=== PATIENT | female | born 1930 | race Caucasian/White ===

== ENCOUNTER → 2019-07-30 | Outpatient (CLI) | payer MEDICARE, OTHER ==
[2016-08-27 14:21] VITALS: BP 135/68
[~2019-07-30] MED LIST: AMLO10TA8 PO; BUDE10.2 IH; FA/V1CAP2 PO; FURO-69 PO; GABA600T7 PO; IOHEXOL 180 MG/ML 10 ML VIAL. ONE; KRIL1CAP7 PO; LEVO250T25 PO; LEVO75TA5 PO; LOSA1TAB22 PO; LOVA20TA2 PO; OMEP20TA63 PO; POTA10TA12 PO; UMEC1DIS IH; VIT1TABL32 PO; methylPREDNISolone ACETATE 40 MG/ML VIAL. ONE; methylPREDNISolone ACETATE 80 MG/ML VIAL. ONE
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
== END | disposition home or self-care (01) ==
LOC: PNCL 10:19
PROVIDERS: ATTEND Anesthesiology
DX: M50.123 Cervical disc disorder at C6-C7 level with radiculopathy (principal); M48.02 Spinal stenosis, cervical region; J44.9 Chronic obstructive pulmonary disease, unspecified; F17.210 Nicotine dependence, cigarettes, uncomplicated; K21.9 Gastro-esophageal reflux disease without esophagitis; M19.90 Unspecified osteoarthritis, unspecified site; Z90.710 Acquired absence of both cervix and uterus; Z90.49 Acquired absence of other specified parts of digestive tract; Z98.890 Other specified postprocedural states; Z79.899 Other long term (current) drug therapy; Z88.0 Allergy status to penicillin; Z88.6 Allergy status to analgesic agent; Z83.3 Family history of diabetes mellitus
CPT/HCPCS: 62321; J1030; J1040; Q9965

== ENCOUNTER → 2019-08-05 | Outpatient (CLI) | payer MEDICARE, OTHER ==
[2016-08-27 14:21] VITALS: BP 135/68
[~2019-08-05] MED LIST changes: -IOHEXOL 180 MG/ML 10 ML VIAL. ONE; -methylPREDNISolone ACETATE 40 MG/ML VIAL. ONE; -methylPREDNISolone ACETATE 80 MG/ML VIAL. ONE
--- NOTE | 2019-08-05 12:21 | KCIC ---
Chest radiograph 08/05/2019 12:00 AM INDICATION: Worsening shortness of breath and cough COMPARISON: 08/26/2016 TECHNIQUE: Frontal and lateral views of the chest are provided. FINDINGS: The cardiomediastinal silhouette is within normal limits. There are no pleural effusions. There is no pulmonary vascular congestion. There is no pneumothorax. Patchy interstitial opacities noted in the lingula and medial right lower lobe. No significant osseous abnormality is identified. IMPRESSION: Patchy interstitial changes are noted in the lingula and right lower lobe. Consideration may be given for multifocal pneumonia versus atelectasis. Recommend follow-up to resolution. Electronically signed by: Vale Borjas MD (08/05/2019 12:18 PM) [facility]
== END | disposition home or self-care (01) ==
LOC: KCIC 11:53
PROVIDERS: ATTEND Internal Medicine Pulmonary Disease
DX: J84.9 Interstitial pulmonary disease, unspecified (principal); R06.02 Shortness of breath; R05 Cough
CPT/HCPCS: 71046

== ENCOUNTER → 2019-08-19 | Outpatient (CLI) | payer MEDICARE, OTHER ==
[2016-08-27 14:21] VITALS: BP 135/68
[~2019-08-19] MED LIST changes: +IOHEXOL 180 MG/ML 10 ML VIAL. ONE; +methylPREDNISolone ACETATE 40 MG/ML VIAL. ONE; +methylPREDNISolone ACETATE 80 MG/ML VIAL. ONE
--- NOTE | 2019-08-19 19:19 | PAIN ---
DATE OF SERVICE: 08/19/2019 PROGRESS NOTE FOR PAIN CLINIC DIAGNOSES: Cervical radiculopathy with cervical degenerative disk disease. HISTORY OF PRESENT ILLNESS: The patient is an 89-year-old female who returns for followup status post cervical epidural steroid injection x 1. The patient reports about 30% improvement overall, but still pain in the base of the neck and right upper extremity. The patient reports it is better with resting or sleeping and it does not awaken her from sleep. The patient reports it is worse with using her upper extremities, lifting items, reaching overhead with her right arm, but still improved, but still significant pain in the left as well. The patient reports her pain is at 8 on a scale of 10 on average, 9 at its worst and a 6 at its least and is an 8 today. The patient reports it is aching and dull, tingling, burning, cramping, sometimes shooting in the right upper extremity, into the right hand. The patient reports no new motor or sensory deficits, no new bowel or bladder incontinence or other complaints. PHYSICAL EXAMINATION: VITAL SIGNS: The patient's blood pressure is 134/68, pulse 90, respirations 16 and temperature is 97.6 degrees Fahrenheit. Weight is 186 pounds. GENERAL: The patient is awake, alert, oriented, appropriate, very pleasant demeanor. HEENT: Exam shows normocephalic, atraumatic. Extraocular movements are intact and symmetrical. Oral cavity: Mucous membranes are moist and pink. Dentition is intact. NECK: Shows anterior throat supple, without palpable lymphadenopathy noted. Swallow reflex is symmetrical. CHEST: Shows normal on inspection. Breath sounds are clear to auscultation bilaterally. HEART: Shows S1, S2 clear. No murmurs auscultated. ABDOMEN: Soft, nontender and nondistended. No palpable organomegaly is noted. No rebound or guarding demonstrated. BACK: Shows spine grossly in the midline. Normal-appearing thoracic kyphosis. Cervical lordotic curvature is slightly flattened as is the lumbar lordotic curvature. Cervical paraspinous muscle shows symmetrical on inspection. On palpation, it shows some moderate tenderness diffusely, but only with deeper palpation in the low cervical distribution inferiorly. The patient shows good rotational motion of the cervical spine, both laterally as well as extension and flexion, without significant increase in pain. EXTREMITIES: The patient's upper extremities show deep tendon reflexes 2+ in the biceps and triceps tendons. Motor exam is a 3 on a scale 5 on the right and 4 on a scale of 5 on the left with getter welder strength, bicep and tricep flexion. Peripheral pulses are 2+ radial distribution. No peripheral edema is noted bilaterally. Options were discussed with the patient. The patient's old chart was reviewed as was her current medication regimen updated. Current review of systems updated today as well. We will proceed with a second in the series of cervical epidural steroid injection today under fluoroscopic guidance. Risks were again discussed including, but not limited to bleeding, infection, possibility of epidural hematoma, subsequent neurological compromise, dural puncture, headaches, spinal cord and/or nerve damage, side effects of steroid medication and poor results regarding pain control. The patient understands and wished to proceed. The patient will return to the clinic in approximately 2 weeks for followup. She was counseled on her return appointment, activity level and side effects to be aware of. DIAGNOSES: Cervical radiculopathy with cervical degenerative disk disease. PROCEDURE: Cervical epidural steroid injection in a translaminar approach C6-C7 level using C-arm fluoroscopic guidance under sterile prep and drape using local anesthetic. MEDICATION INJECTED: A total of 120 mg Depo-Medrol plus 5 mL of preservative-free normal saline and 2 mL of contrast. CONDITION AT DISCHARGE: Stable. The patient tolerated procedure well, had no complications. MARINO BACH MD DR: IRINA/anthony JOB#: [id number] / [id number]
== END ==
LOC: PNCL 10:48
PROVIDERS: ATTEND Anesthesiology
DX: M50.123 Cervical disc disorder at C6-C7 level with radiculopathy (principal)
CPT/HCPCS: 62321; J1030; J1040; Q9965

== ENCOUNTER → 2019-09-09 | Outpatient (CLI) | payer MEDICARE, OTHER ==
[2016-08-27 14:21] VITALS: BP 135/68
--- NOTE | 2019-09-09 12:42 | PAIN ---
DATE OF SERVICE: 09/09/2019 PROGRESS NOTE FOR PAIN CLINIC DIAGNOSIS: Cervical radiculopathy with cervical degenerative disk disease. HISTORY OF PRESENT ILLNESS: This is an 89-year-old female who returns for followup, status post cervical epidural steroid injections x 2. The patient reports doing better with approximately 80% improvement overall. The patient reports this pain is at the base of the neck especially on the right side and right shoulder and arm but the arm is doing much better, mainly in the neck and shoulder now. The patient reports the pain is 8 on a scale of 10 at its worst in the past week, 7 on average, 6 at its least and is a 6 today. The patient reports it is on and off in intensity with sharp pain in the base of the neck, ____ increased activity with the right arm, doing greater activities at home as well as driving and riding in a car much more comfortably. The patient reports she is sleeping well at night; when she turns over one right side, it can awaken her from sleep but not every night. It happens only about every 7 hours at night as well. The patient reports no new motor or sensory deficits, no new changes. PHYSICAL EXAMINATION: VITAL SIGNS: The patient's blood pressure 138/80, pulse 76, respirations 16, temperature 97.5 degrees Fahrenheit, weight is 184 pounds. GENERAL: The patient is awake, alert, oriented, appropriate, very pleasant demeanor. HEENT: Head shows normocephalic, atraumatic. Extraocular movements are intact and symmetrical. Oral cavity: Mucous membranes moist and pink. Dentition is intact. NECK: Shows anterior throat is supple without palpable lymphadenopathy noted. Swallow reflex symmetrical. CHEST: Shows normal on inspection. Breath sounds are distant, but clear bilaterally. HEART: Shows S1, S2 clear. ABDOMEN: Soft, nontender, and nondistended. BACK: Shows spine grossly in the midline. Normal-appearing thoracic kyphosis and some minor flattening of lumbar lordotic curvature. Cervical paraspinous musculature shows symmetrical on inspection, with palpation shows some moderate tenderness, more on the right side than the left with palpation into the inferior cervical paraspinous musculature as well as the superior medial trapezius with some firm rope-like musculature in this region, but without radiation. The patient has good rotational motion of cervical spine, both laterally as well as extension and flexion without significant increase in pain. EXTREMITIES: Upper extremities show deep tendon reflexes 2+ in the biceps and triceps tendons. Motor exam is approximately 3 on a scale of 5 on the right with gluing machine operator strength at 4/5 on the left and 4/5 with bicep and tricep flexion bilaterally. Peripheral pulses are 2+ radial distribution. No peripheral edema is noted bilaterally. Options were discussed with the patient. The patient's old chart was reviewed as her current medication regimen updated. Current review of systems updated today as well. We will proceed with a third in the series of cervical epidural steroid injection today with fluoroscopic guidance. Risks were again discussed including, but not limited to bleeding, infection, possibility of epidural hematoma, subsequent neurological compromise, dural puncture, headaches, spinal cord and/or nerve damage, side effects of steroid medication and poor results regarding pain control. The patient understands and wished to proceed. The patient will return to the clinic in approximately 2 weeks for followup. She was counseled on return appointment, activity level and side effects to be aware of. DIAGNOSIS: Cervical radiculopathy with cervical degenerative disk disease. PROCEDURE: Cervical epidural steroid injection, translaminar approach C6-C7 level using C-arm fluoroscopic guidance under sterile prep and drape using local anesthetic. MEDICATION INJECTED: A total of 120 mg of Depo-Medrol plus 5 mL of preservative-free normal saline and 2 mL of contrast. CONDITION AT DISCHARGE: Stable. The patient tolerated the procedure well, had no complications. MARINO BACH MD DR: IRINA/anthony JOB#: [id number] / [id number]
== END ==
LOC: PNCL 10:09
PROVIDERS: ATTEND Anesthesiology
DX: M50.123 Cervical disc disorder at C6-C7 level with radiculopathy (principal)
CPT/HCPCS: 62321; J1030; J1040; Q9965